=== PATIENT | male | born 1975 | race Caucasian/White ===

== ENCOUNTER 2017-06-17 17:07 | Emergency (ER) | payer BC ==
--- NOTE | 2017-06-17 17:41 | PDOC ---
Rapid Medical Evaluation Time Seen by Provider: 06/17/17 17:39 Medical Evaluation: Allergies Allergy/AdvReac Type Severity Reaction Status Date / Time lactose AdvReac Verified 07/27/15 17:53 seafood Allergy Unknown Uncoded 07/27/15 17:53 06/17/17 17:39 I have performed a brief in-person evaluation of this patient. The patient presents with a chief complaint of: Abd pain w/ nausea after lunch today. H/o IBS, possible diverticultis, s/p appy Pertinent physical exam findings:vitals stable w/ ttp to epigastrium and possibly LLQ I have ordered the following:labs The patient will proceed to the ED for further evaluation. 06/17/17 17:42 06/17/17 17:43
[2017-06-17 17:43] VITALS: BP 122/89; PULSE 53; TEMP 97.6; BMI 25.0
[2017-06-17 18:28] LABS: BASO % 0.5 % (0-2.0); EOS % 0.4 % (0-4.5); HEMATOCRIT 44.4 % (35.4-49); HEMOGLOBIN 14.7 GM/dL (11.7-16.9); LYMPH % 29.3 % (8-40); MCH 30.4 pg (25.7-33.7); MEAN PLT VOLUME 10.5 fl (7.5-11.1); MONO % 6.7 % (3.8-10.2); NEUT % 63.1 % (42.8-82.8); PLATELET COUNT 230 K/MM3 (134-434); RBC 4.83 M/mm3 (4.00-5.60); RDW 12.6 % (11.9-15.9); WHITE BLOOD COUNT 9.1 K/mm3 (4.0-10.0)
[2017-06-17 18:31] LABS: URINE APPEARANCE CLEAR; URINE BILIRUBIN NEGATIVE (NEGATIVE); URINE BLOOD NEGATIVE (NEGATIVE); URINE COLOR LTYELLOW; URINE GLUCOSE (UA) NEGATIVE (NEGATIVE); URINE KETONE TRACE (NEGATIVE); URINE LEUK ESTERASE NEGATIVE (NEGATIVE); URINE NITRITE NEGATIVE (NEGATIVE); URINE PROTEIN NEGATIVE (NEGATIVE); URINE UROBILINOGEN NEGATIVE mg/dL (0.2-1.0)
[2017-06-17 18:53] LABS: ALBUMIN 4.2 g/dl (3.4-5.0); ALK PHOS 80 U/L (45-117); ANION GAP 7 (8-16); BILIRUBIN,TOTAL 0.6 mg/dL (0.2-1.0); BLOOD UREA NITROGEN 17 mg/dL (7-18); CALCIUM 8.3 mg/dL (8.5-10.1); CHLORIDE 106 mmol/L (98-107); CO2 26 mmol/L (21-32); GLUCOSE,RANDOM 87 mg/dL (74-106); LIPASE 133 U/L (73-393); SGOT/AST 18 U/L (15-37); SGPT/ALT 24 U/L (12-78); SODIUM 139 mmol/L (136-145); TOT PROT 7.2 g/dl (6.4-8.2)
--- NOTE | 2017-06-17 20:52 | PDOC ---
History of Present Illness - General Chief Complaint: Pain Stated Complaint: STOMACH PAIN Time Seen by Provider: 06/17/17 17:39 History Source: Patient Exam Limitations: No Limitations - History of Present Illness Initial Comments: 42M with h/o IBS, colitis, cholecystectomy, appendectomy, umbilical hernia repair, and GERD (on pantoprazole) who p/w diffuse intermittent 7/10 abdominal cramping with sharper twinges of LLQ pain since 10 am today. He has had the same pain in the past and is seen by GI Dr. Mercado (last visit 2 weeks ago for the same LLQ sharp pain). The patient states Dr. 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 The patient has additionally been having sore throat x2 days, swollen glands in his neck today, mild intermittent nausea, and left testicular mild pain (for which he was seen by his urologist yesterday, had an US of the testicles in office, and was prescribed Cipro/Macrobid which he has been taking since yesterday, does not know what the diagnosis was or why he is taking the antibiotics). He denies any diarrhea, constipation, white/black/bloody stool, dysuria, penile discharge, lumps/bumps in his abdomen or testicles, fever, chills, chest pain, SOB, concern for STD, or exposure to sick individuals. He has not taken medications for his symptoms today. Past History - Past Medical History Allergies/Adverse Reactions: Allergies Allergy/AdvReac Type Severity Reaction Status Date / Time lactose AdvReac Verified 06/17/17 17:43 seafood Allergy Unknown Uncoded 06/17/17 17:43 Home Medications: Ambulatory Orders Pantoprazole Sodium [Protonix] 40 mg PO DAILY #3 tablet. 05/11/14 Diphenhydramine HCl [Benadryl -] 25 mg PO Q6H #28 capsule 07/27/15 Prednisone [Deltasone -] 20 mg PO DAILY #10 tablet 07/27/15 COPD: No GI Disorders: Yes (colitis) - Surgical History Cholecystectomy: Yes - Immunization History TDAP Vaccination: No Immunization Up to Date: Yes - Suicide/Smoking/Psychosocial Hx Smoking Status: No Smoking History: Never smoked Have you smoked in the past 12 months: No Number of Cigarettes Smoked Daily: 0 Information on smoking cessation initiated: No Hx Alcohol Use: No Drug/Substance Use Hx: No Substance Use Type: None Abd/GI Specific PMHX - Complaint Specific PMHX Colitis: Yes GERD: Yes Review of Systems - Review of Systems Able to Perform ROS?: Yes Constitutional: No: Chills, Fever, Unexplained wgt Loss HEENTM: Yes: Throat Pain, Other (swollen glands). No: Nose Congestion Respiratory: No: Cough, Shortness of Breath Cardiac (ROS): No: Chest Pain, Palpitations ABD/GI: Yes: Nausea (mild), Other (abdominal cramping, sharp left lower abdominal pain). No: Constipated, Diarrhea, Vomiting : Yes: Testicular Pain (left). No: Burning, Dysuria Musculoskeletal: No: Back Pain, Neck Pain Integumentary: No: Bruising, Rash Neurological: No: Headache, Numbness, Tingling, Weakness, Dizziness Endocrine: No: Unexplained Weight Gain, Unexplained Weight Loss *Physical Exam - Vital Signs Last Vital Signs Temp Pulse Resp BP Pulse Ox 97.6 F 53 L 18 122/89 100 06/17/17 17:39 06/17/17 17:39 06/17/17 17:39 06/17/17 17:39 06/17/17 17:39 - Physical Exam General Appearance: Yes: Nourished, Appropriately Dressed, Other (pleasant appropriate adult male, nontoxic appearing). No: Apparent Distress HEENT: positive: EOMI, SOILA, Normal Voice, Hearing Grossly Normal. negative: Scleral Icterus (R), Scleral Icterus (L), Nasal Congestion Neck: positive: Trachea midline, Supple. negative: Tender, Rigid, Lymphadenopathy (R), Lymphadenopathy (L) Respiratory/Chest: positive: Lungs Clear, Normal Breath Sounds. negative: Chest Tender, Respiratory Distress, Crackles, Rhonchi, Stridor, Wheezing Cardiovascular: positive: Regular Rhythm, Regular Rate, S1, S2. negative: Edema , JVD, Murmur Gastrointestinal/Abdominal: positive: Normal Bowel Sounds, Tender (mild ttp suprapubic and LLQ without rebound or peritoneal signs), Flat, Soft. negative: Organomegaly, Pulsatile Mass, Guarding Male Genitalia: positive: other (deferred as had urology appointment yesterday) Musculoskeletal: positive: Normal Inspection. negative: Decreased Range of Motion, Vertebral Tenderness Extremity: positive: Normal Capillary Refill, Normal Inspection, Normal Range of Motion. negative: Tender, Cyanosis Integumentary: positive: Normal Color, Dry, Warm. negative: Erythema, Rash, Bruising Neurologic: positive: bronze chaser II-XII NML intact (grossly), Fully Oriented, Alert, Normal Mood/Affect, Normal Response, Motor Strength / ED Treatment Course - LABORATORY CBC & Chemistry Diagram: 06/17/17 17:55 06/17/17 17:55 - ADDITIONAL ORDERS Additional order review: Laboratory Results 06/17/17 06/17/17 17:55 16:05 Sodium 139 Potassium 4.0 Chloride 106 Carbon Dioxide 26 Anion Gap 7 L BUN 17 D Creatinine 1.0 Creat Clearance w eGFR > 60 Random Glucose 87 D Calcium 8.3 L Total Bilirubin 0.6 AST 18 ALT 24 D Alkaline Phosphatase 80 Total Protein 7.2 Albumin 4.2 Lipase 133 Urine Color Ltyellow Urine Appearance Clear Urine pH 5.0 Ur Specific [place] 1.020 Urine Protein Negative Urine Glucose (UA) Negative Urine Ketones Trace H Urine Blood Negative Urine Nitrite Negative Urine Bilirubin Negative Urine Urobilinogen Negative Ur Leukocyte Esterase Negative 06/17/17 17:55 RBC 4.83 MCV 92.0 MCHC 33.0 RDW 12.6 MPV 10.5 Neutrophils % 63.1 Lymphocytes % 29.3 D Monocytes % 6.7 Eosinophils % 0.4 D Basophils % 0.5 Medical Decision Making - Medical Decision Making 42M with h/o IBS, GERD, appendectomy, cholecystectomy, placed on abx yesterday for left test pain, p/w abdominal pain. Same abdominal pain as many prior episodes for which he has been seen by GI Dr. Mercado and needs MRI (already ordered as OP). On exam VS wnl and patient in NAD, abdominal ttp suprapubic and LLQ which is mild, otherwise normal exam. Ordered from E are CBCD, CMP, lipase, UA. 06/17/17 22:14 Patient's labs are unremarkable. Ordered is CXR and Rapid Strep given patient's recent sore throat/swollen neck glands. Patient is given a pitcher of water as he refuses IVF. *DC/Admit/Observation/Transfer Diagnosis at time of Disposition: Abdominal pain Qualifiers: Abdominal location: lower abdomen, unspecified Qualified Code(s): R10.30 - Lower abdominal pain, unspecified - Discharge Dispostion Disposition: HOME Condition at time of disposition: Stable Admit: No - Referrals Referrals: Shawn Bartlett [Primary Care Provider] - - Patient Instructions Additional Instructions: You were seen in the ER for abdominal pain. We did lab work, a Strep throat test , and a chest x-ray and there were no concerning findings. Please follow up with your GI doctor and your urologist, as well as your PCP. Please take Tylenol or Motrin (whichever you normally take) for pain. Return to the ER for any new or worsening symptoms. - Post Discharge Activity
[2017-06-17] MEDS ORDERED: SODIUM CHLORIDE 0.9% 500 ML INFUS.BAG IV ONE (21:43)
--- NOTE | 2017-06-18 | PDOC ---
Attending Attestation - Resident Resident Name: HarshadAdalgisa - ED Attending Attestation I have performed the following: I have examined & evaluated the patient, The case was reviewed & discussed with the resident, I agree w/resident's findings & plan - HPI HPI: 06/17/17 23:59 Pt comes with stomach virus like symptoms - Physicial Exam PE: 06/17/17 23:59 Agree with resident exam - Medical Decision Making 06/17/17 23:59 Labs normal. Exam normal. Pt feeling better with hydration.
== END 2017-06-18 00:29 | disposition home or self-care (01) ==
LOC: JER 17:07
DX: R10.30 Lower abdominal pain, unspecified (principal)
CPT/HCPCS: 36415; 71046-TC; 80053; 81003; 83690; 85025; 87070; 87430; 99281-25